=== PATIENT | male | born 2000 | race African-American/Black ===

== ENCOUNTER 2018-12-09 14:18 | Emergency (ER) | payer SELFPAY ==
[2018-12-09] MEDS ORDERED: SMZ./TMP. 800/160 MG TABLET ONE (15:38)
[2018-12-09] MEDS ORDERED: IBUPROFEN 400 MG TAB ONE (15:39)
[2018-12-09] MEDS ORDERED: predniSONE 20 MG TAB ONE (15:39)
[2018-12-09] MEDS ORDERED: IBUPROFEN 200 MG TAB PO ONE (15:39)
--- NOTE | 2018-12-09 15:41 | EDPHYS ---
Physician Documentation [facility] Name: Adi Soliman Age: 18 yrs Sex: Male : 2000 Arrival Date: 12/09/2018 Time: 14:22 Bed 28 Private MD: ED Physician Vaughn Mercedes HPI: 12/09 15:34 This 18 yrs old Black Male presents to ER via Ambulatory with complaints of Numbness Of kamilla Face, Headache. 15:34 The patient's problem is reported as headache. Onset: The symptoms/episode kamilla began/occurred 2 day(s) ago. Duration: The episode is continuous. Context: occurred at an unknown location. Associated signs and symptoms: The patient has no apparent associated signs or symptoms. Severity of symptoms: At their worst the symptoms were mild in the emergency department the symptoms are unchanged. Patient's baseline: Neuro: alert and fully oriented. Historical: - Allergies: 14:35 No Known Allergies; ss - Home Meds: 14:35 Singulair Oral [Active]; ss - PMHx: 14:35 None; ss - PSHx: 14:35 None; ss - Immunization history:: Adult Immunizations up to date. - Social history:: Smoking status: Patient/guardian denies using tobacco. - Ebola Screening: : No symptoms or risks identified at this time. - Family history:: not pertinent. ROS: 15:34 Constitutional: Negative for fever, chills, and weight loss, Eyes: Negative for injury, kamilla pain, redness, and discharge, ENT: Negative for injury, pain, and discharge, Neck: Negative for injury, pain, and swelling, Cardiovascular: Negative for chest pain, palpitations, and edema, Respiratory: Negative for shortness of breath, cough, wheezing, and pleuritic chest pain, Abdomen/GI: Negative for abdominal pain, nausea, vomiting, diarrhea, and constipation, Back: Negative for injury and pain, : Negative for injury, bleeding, discharge, and swelling, MS/Extremity: Negative for injury and deformity, Skin: Negative for injury, rash, and discoloration, Psych: Negative for depression, anxiety, suicide ideation, homicidal ideation, and hallucinations, Allergy/Immunology: Negative for hives, rash, and allergies, Endocrine: Negative for neck swelling, polydipsia, polyuria, polyphagia, and marked weight changes, Hematologic/Lymphatic: Negative for swollen nodes, abnormal bleeding, and unusual bruising. 15:34 Neuro: Positive for headache. Exam: 15:36 Radiologist reports: see report kamilla 15:36 Constitutional: This is a well developed, well nourished patient who is awake, alert, and in no acute distress. Head/Face: Normocephalic, atraumatic. Eyes: Pupils equal round and reactive to light, extra-ocular motions intact. Lids and lashes normal. Conjunctiva and sclera are non-icteric and not injected. Cornea within normal limits. Periorbital areas with no swelling, redness, or edema. ENT: Nares patent. No nasal discharge, no septal abnormalities noted. Tympanic membranes are normal and external auditory canals are clear. Oropharynx with no redness, swelling, or masses, exudates, or evidence of obstruction, uvula midline. Mucous membranes moist. Neck: Trachea midline, no thyromegaly or masses palpated, and no cervical lymphadenopathy. Supple, full range of motion without nuchal rigidity, or vertebral point tenderness. No Meningismus. Chest/axilla: Normal chest wall appearance and motion. Nontender with no deformity. No lesions are appreciated. Cardiovascular: Regular rate and rhythm with a normal S1 and S2. No gallops, murmurs, or rubs. Normal PMI, no JVD. No pulse deficits. Respiratory: Lungs have equal breath sounds bilaterally, clear to auscultation and percussion. No rales, rhonchi or wheezes noted. No increased work of breathing, no retractions or nasal flaring. Abdomen/GI: Soft, non-tender, with normal bowel sounds. No distension or tympany. No guarding or rebound. No evidence of tenderness throughout. Back: No spinal tenderness. No costovertebral tenderness. Full range of motion. Male : Normal genitalia with no discharge or lesions. Skin: Warm, dry with normal turgor. Normal color with no rashes, no lesions, and no evidence of cellulitis. MS/ Extremity: Pulses equal, no cyanosis. Neurovascular intact. Full, normal range of motion. Neuro: Awake and alert, GCS 15, oriented to person, place, time, and situation. Cranial nerves II-XII grossly intact. Motor strength 5/5 in all extremities. Sensory grossly intact. Cerebellar exam normal. Normal gait. Psych: Awake, alert, with orientation to person, place and time. Behavior, mood, and affect are within normal limits. Vital Signs: 14:40 BP 126 / 69; Pulse 74; Resp 18; Pulse Ox 99% on R/A; tr5 16:00 BP 118 / 66; Pulse 73; Resp 16; Temp 97.6(TE); Pulse Ox 98% on R/A; Weight 87.09 kg; tr5 Height 5 ft. 2 in. (157.48 cm); Pain 7/10; 16:00 Body Mass Index 35.12 (87.09 kg, 157.48 cm) tr5 MDM: 14:49 Patient medically screened. [facility] 15:37 Data reviewed: vital signs, nurses notes, radiologic studies, CT scan. [facility] 12/09 15:34 Order name: CT Head Brain wo Cont; Complete Time: 16:24 [facility] Administered Medications: 15:42 Drug: Motrin 600 mg Route: PO; tr5 16:05 Follow up: Response: No adverse reaction tr5 15:43 Drug: predniSONE 40 mg Route: PO; tr5 16:05 Follow up: Response: No adverse reaction tr5 15:44 Drug: Bactrim (160 mg-800 mg (DS) 1 tablet Route: PO; tr5 16:05 Follow up: Response: No adverse reaction tr5 Disposition: 12/09/18 15:40 Discharged to Home. Impression: Headache, Acute sinusitis, Cutaneous abscess of groin. - Condition is Stable. - Discharge Instructions: Skin Abscess, General Headache Without Cause, Sinusitis, Adult, Skin Abscess, [id number], General Headache Without Cause, [id number]. - Prescriptions for Ibuprofen 600 mg Oral Tablet - take 1 tablet by ORAL route every 8 hours As needed take with food; 21 tablet. Medrol (George) 4 mg Oral Tablets, Dose Pack - take 1 tablet by ORAL route as directed - follow package instructions; 1 packet. - Medication Reconciliation Form, Thank You Letter, Antibiotic Education, Prescription Opioid Use form. - Follow up: Private Physician; When: 2 - 3 days; Reason: Recheck today's complaints, Continuance of care, Re-evaluation by your physician. Follow up: Javier Smiley; When: 2 - 3 days; Reason: Recheck today's complaints, Continuance of care, Re-evaluation by your physician. - Problem is new. - Symptoms have improved. Signatures: Dispatcher [employer] Vaughn Méndez MD MD cha Smirch, Shelby, RN RN Jefferson Yoon RN RN tr5 Corrections: (The following items were deleted from the chart) 17:01 15:40 12/09/2018 15:40 Discharged to Home. Impression: Headache; Acute sinusitis. [facility] Condition is Stable. Discharge Instructions: General Headache Without Cause, Sinusitis, Adult, General Headache Without Cause, [id number]. Prescriptions for Ibuprofen 600 mg Oral Tablet - take 1 tablet by ORAL route every 8 hours As needed take with food; 21 tablet, Medrol (George) 4 mg Oral Tablets, Dose Pack - take 1 tablet by ORAL route as directed - follow package instructions; 1 packet. and Forms are Medication Reconciliation Form, Thank You Letter, Antibiotic Education, Prescription Opioid Use. Follow up: Private Physician; When: 2 - 3 days; Reason: Recheck today's complaints, Continuance of care, Re-evaluation by your physician. Follow up: Javier Smiley; When: 2 - 3 days; Reason: Recheck today's complaints, Continuance of care, Re-evaluation by your physician. Problem is new. Symptoms have improved. [facility] 17:07 17:01 12/09/2018 15:40 Discharged to Home. Impression: Headache; Acute sinusitis; tr5 Cutaneous abscess of groin. Condition is Stable. Discharge Instructions: General Headache Without Cause, Sinusitis, Adult, General Headache Without Cause, [id number]. Prescriptions for Ibuprofen 600 mg Oral Tablet - take 1 tablet by ORAL route every 8 hours As needed take with food; 21 tablet, Medrol (George) 4 mg Oral Tablets, Dose Pack - take 1 tablet by ORAL route as directed - follow package instructions; 1 packet. and Forms are Medication Reconciliation Form, Thank You Letter, Antibiotic Education, Prescription Opioid Use. Follow up: Private Physician; When: 2 - 3 days; Reason: Recheck today's complaints, Continuance of care, Re-evaluation by your physician. Follow up: Javier Smiley; When: 2 - 3 days; Reason: Recheck today's complaints, Continuance of care, Re-evaluation by your physician. Problem is new. Symptoms have improved. [facility]
--- NOTE | 2018-12-09 15:41 | ER ---
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 It's been going on for months." Mother states, "He has cellulitis of his inner thighs, and he says it hasn't gone away." patient reports he was given antibiotics for cellulitis in October, but it did not help.". 14:35 Method Of Arrival: Ambulatory ss 14:35 Transition of care: patient was not received from another setting of care. Onset of ss symptoms is unknown. Risk Assessment: Do you want to hurt yourself or someone else? Patient reports no desire to harm self or others. Initial Sepsis Screen: Does the patient meet any 2 criteria? No. Patient's initial sepsis screen is negative. Does the patient have a suspected source of infection? No. Patient's initial sepsis screen is negative. Care prior to arrival: None. 14:35 Acuity: SABI 5 ss Historical: - Allergies: 14:35 No Known Allergies; ss - Home Meds: 14:35 Singulair Oral [Active]; ss - PMHx: 14:35 None; ss - PSHx: 14:35 None; ss - Immunization history:: Adult Immunizations up to date. - Social history:: Smoking status: Patient/guardian denies using tobacco. - Ebola Screening: : No symptoms or risks identified at this time. - Family history:: not pertinent. Screenin:00 Abuse screen: Denies threats or abuse. Nutritional screening: No deficits noted. tr5 Tuberculosis screening: No symptoms or risk factors identified. Fall Risk None identified. Assessment: 14:40 General: Appears in no apparent distress. Behavior is calm, cooperative, appropriate tr5 for age. Pain: Complains of pain in forehead, right eye, right cheek, right ear and right mu-ism Pain does not radiate. Quality of pain is described as aching, crampy, Pain began Pt says the headaches began 3 months ago. 16:51 Reassessment: Awaiting for Dr. Mercedes to assess patient's groin area prior to ss discharge home. Vital Signs: 14:40 BP 126 / 69; Pulse 74; Resp 18; Pulse Ox 99% on R/A; tr5 16:00 BP 118 / 66; Pulse 73; Resp 16; Temp 97.6(TE); Pulse Ox 98% on R/A; Weight 87.09 kg; tr5 Height 5 ft. 2 in. (157.48 cm); Pain 7/10; 16:00 Body Mass Index 35.12 (87.09 kg, 157.48 cm) tr5 ED Course: 14:22 Patient arrived in ED. mr 14:34 Arm band placed on. ss 14:39 Jefferson Coughlin, RN is Primary Nurse. tr5 14:45 Bed in low position. Call light in reach. Side rails up X 1. tr5 14:49 Vaughn Mercedes MD is Attending Physician. kamilla 14:51 Triage completed. ss 15:40 Javier Smiley MD is Referral Physician. kamilla 15:46 CT completed. Patient tolerated procedure well. Patient moved back from CT. mw3 15:46 CT Head Brain wo Cont In Process Unspecified. EDMS 16:18 Awaiting radiology results. tr5 17:04 No provider procedures requiring assistance completed. Patient did not have IV access tr5 during this emergency room visit. Administered Medications: 15:42 Drug: Motrin 600 mg Route: PO; tr5 16:05 Follow up: Response: No adverse reaction tr5 15:43 Drug: predniSONE 40 mg Route: PO; tr5 16:05 Follow up: Response: No adverse reaction tr5 15:44 Drug: Bactrim (160 mg-800 mg (DS) 1 tablet Route: PO; tr5 16:05 Follow up: Response: No adverse reaction tr5 Outcome: 15:40 Discharge ordered by . kamilla 17:04 Discharged to home ambulatory, with family. tr5 17:04 Condition: stable 17:04 Discharge instructions given to patient, Instructed on discharge instructions, follow up and referral plans. medication usage, Demonstrated understanding of instructions, follow-up care, medications, Prescriptions given X 2. 17:07 Patient left the ED. 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 2 in.; BMI: 35.1; Pain 7/10; ss 16:02 16:00 BP 109 / 63; Pulse 76bpm; Resp 16bpm; Pulse Ox 98% RA; Temp 97.6F Temporal; 87.09 tr5 kg; Height 5 ft. 2 in.; BMI: 35.1; Pain 7/10; tr5
--- NOTE | 2018-12-09 16:15 | RAD REPORT ---
EXAM DESCRIPTION: CT - Head Brain Wo Cont - 12/09/2018 3:46 pm CLINICAL HISTORY: Headache COMPARISON: None. TECHNIQUE: Computed axial tomography of the head was obtained. IV contrast was not requested. All CT scans are performed using dose optimization technique as appropriate and may include automated exposure control or mA/KV adjustment according to patient size. FINDINGS: An intracranial bleed is not seen . The ventricles are normal in caliber. No extra-axial fluid collection is noted. Fluid within the sinuses/ mastoids is not seen. IMPRESSION: No acute intracranial abnormality is seen. If patient's symptoms persist MRI of the bra in would be recommended.
[2018-12-09 17:18] VITALS: BP 118/66; TEMP 97.6; O2SAT 98
== END 2018-12-09 17:07 | disposition home or self-care (01) ==
LOC: ER 14:18
DX: J01.90 Acute sinusitis, unspecified (principal); L02.214 Cutaneous abscess of groin
CPT/HCPCS: 70450; 99284; J7512

== ENCOUNTER 2020-03-04 14:15 | Emergency (ER) | payer BC ==
--- OUTSIDE RECORDS SUMMARY | 2020-03-04 14:26 | XMS REPORT | Continuity of Care Document ---
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 [facility] (disorder) Mastoiditis Resolved Problem 10/16/2018 [facility] (disorder) [facility] 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 [facility] (disorder) Seasonal Resolved Problem 10/16/2018 [facility] allergic [facility] rhinitis (disorder) Medications Medication Details Route Status Patient Ordering Order Source Instructions Provider Date ibuprofen 600 mg 600 mg = Active Sheela y oral tablet 1 tab, 019 Hospital PO, Q6H, PRN Pain or Fever, Take with food, X 5 day, # 20 tab, 0 Refill(s) Famotidine 20 MG 20 mg = 1 Active Ka ty Oral Tablet tab, PO, 019 Hospital BID, # 28 tab, 0 Refill(s) Maalox Advanced Notes: Inactive Thelma Regular Strength (aluminum 019 Hospi junie SUSP hydroxide -magnesiu m hyd-simet hicone 200-200-2 0mg/5ml 30 ml ud REED) Lidocaine Viscous Notes: Inactive Ka ty 2% mucous membrane (Same as: 019 Hos pital solution Xylocaine ) Saline Flush 0.9% Notes: Inactive Ka ty (Same as: 019 Hospital BD Posiflush ) Sodium Chloride 1,000 mL, Inactive Ka ty 0.9% (Bolus) IV 1000 019 Hospital ml/hr, Infuse Over: 1 hr, Route: IV, 1,000, Drug form: INJ, ONCE, Priority: STAT, Dosing Weight 90.909 kg, Start date: 10/14/18 15:57:00 CDT, Stop date: 10/14/18 15:57:00 CDT, 0 Motrin Notes: Inactive Thelma (Same as: [address] [place] [address] Motrin) "Do Not Crush" Take with food. aspirin 81 mg Notes: Do No Longer Sheela y tablet, enteric not crush Active [facility] Hospit al coated or chew. (Same As: Ecotrin) Prednisone Notes: No Longer Thelma Take with Active [address] [place] [address] food. atorvastatin Notes: Inactive Thelma (Same As: [address] [place] [address] Lipitor) Ibuprofen 800 mg, Active Thelma BID, PRN [address] [place] [address] Pain Score 1-5, 0 Refill(s) valACYclovir 500 1,000 mg Active Sheela y mg oral tablet = 2 tab, [address] [place] [address] PO, ABXQ8H, X 7 day, # 42 tab, 0 Refill(s) predniSONE 20 mg See Active Thelma oral tablet Special [address] [place] [address] Instructi ons, PO, Daily, 12 day regimen: Days 1-4 - 40 mg (2 tabs) daily Days 5-8 - 20 mg (1 tab) daily Days 9-12 - 10 mg (1/2 tab) daily, X 12 day, # 12 tab, 0 Refill(s) valacyclovir Notes: Inactive Thelma (Same As: [address] [place] [address] Valtrex) tramadol 50 mg = 1 Active Thelma hydrochloride 50 tab, PO, 018 Hospit al MG Oral Tablet Q4H, PRN Pain, X 10 day, # 60 tab, 0 Refill(s) Sodium Chloride 1,000 mL, Inactive Ka ty 0.9% IV 1,000 mL Rate: 125 018 Hospi junie ml/hr, Infuse over: 8 hr, Route: IV, Dosing Weight 85.455 kg, Total Volume: 1,000, Start date: 03/15/17 12:05:00 STAGE RIGGER, Duration: 30 day, Stop date: 04/14/17 12:04:00 STAGE RIGGER, 2.08, m2 Polymyxin B 08707 1 drp, Active Sheela y UNT/ML / BOTH [address] [place] [address] Trimethoprim 1 EYES, MG/ML Ophthalmic TID, 0 Solution Refill(s) Fluticasone 1 spray, Active Thelma propionate 0.05 NASAL, [address] [place] [address] MG/ACTUAT Metered Daily, Dose Nasal [place] PRN [Flonase] Allergies , 0 Refill(s) ibuprofen 800 mg 800 mg = Inactive Handy ty oral tablet 1 tab, [facility] Hospital PO, TID, PRN Pain Score 1-5, 0 Refill(s) montelukast 10 MG 10 mg = 1 Active K aty Oral Tablet tab, PO, [address] [place] [address] [Singulair] Daily, 0 Refill(s) lisdexamfetamine 20 mg = 1 Active Ka ty dimesylate 20 MG cap, PO, 018 Hospit al Oral Capsule QAM, 0 [Vyvanse] Refill(s) Saline Flush 0.9% Notes: Inactive Handy ty (Same as: [address] [place] [address] Posiflush ) Enoxaparin Notes: Inactive Thelma (Same as: [address] [place] [address] Lovenox) Famotidine Notes: Inactive Thelma (Same as: [address] [place] [address] Pepcid) Saline Flush 0.9% Notes: Inactive Handy jose a (Same as: [address] [place] [address] Posiflush ) Sodium Chloride 1,000 mL, Inactive Handy ty 0.9% IV 1,000 mL Rate: 75 018 Hospit al ml/hr, Infuse over: 13.3 hr, Route: IV, Dosing Weight 85.455 kg, Total Volume: 1,000, Start date: 03/15/17 8:25:00 STAGE RIGGER, Duration: 30 day, Stop date: 04/14/17 8:24:00 STAGE RIGGER, 2.08, m2 Acetaminophen Notes: Do Inactive Thelma not [address] [place] [address] exceed 4 gm/day. (Same as: Tylenol) Aspirin 325 mg, Inactive Thelma Route: [address] [place] [address] PO, Drug form: ECTAB, ONCE, Dosing Weight 85.455, kg, Priority: STAT, Start date: 03/15/17 4:54:00 STAGE RIGGER, Stop date: 03/15/17 4:54:00 STAGE RIGGER BD Normal Saline Notes: Inactive Sheela y Flush (Same as: 018 [facility] BD Posiflush ) Saline Flush 0.9% Notes: Inactive Handy naranjo (Same as: 018 [facility] BD Posiflush ) Sodium Chloride 1,000 mL, Inactive Handy ty 0.9% (Bolus) IV Infuse [address] [place] [address] Over: 1 hr, Route: IV, ONCE, Priority: STAT, Dosing Weight 85.455 kg, Start date: 03/15/17 2:05:00 STAGE RIGGER, Stop date: 03/15/17 2:05:00 STAGE RIGGER Allergies, Adverse Reactions, Alerts Substance Category Reaction Severity Reaction Status Date Comments S ource type Reported No Known Assertion Drug Handy naranjo Medication allergy Hospi junie Allergies Immunizations No Data Provided for This Section Results Order Name Results Value Reference Date Interpretation Comments Flory rce Range CARDIAC Troponin-I <0.02 0.00 - 10/14 [facility] ENZYMES 0.40 [facility] CHEM PANEL B/C Ratio 9 6 - 25 10/14 [facility] CHEM PANEL AGAP 12.0 10.0 - 08 [facility] 20.0 [facility] CHEM PANEL A/G Ratio 1.2 0.7 - 1.6 10/14 [facility] CHEM PANEL Globulin 3.6 2.7 - 4.2 10/14 [facility] CHEM PANEL eGFR 108 10/14 Result Comment: The Hospital eGFR is calculated using the CKD-EPI formula. In most young, healthy individuals the eGFR will be >90 mL/min/1.73m2 . The eGFR declines with age. An eGFR of 60-89 may be normal in some populations, particularly the elderly, for whom the CKD-EPI formula has not been extensively validated. Use of the eGFR is not recommended in the following populations:< br/>
Shannan viduals with unstable creatinine concentration s, including patients and those with serious co-morbid conditions.<b r/>
Patie nts with extremes in muscle mass or diet.

The data above are obtained from the National Kidney Disease Education Program (NKDEP) which additionally recommends that when the eGFR is used in patients with extremes of body mass index for purposes of drug dosing, the eGFR should be multiplied by the estimated BMI. CHEM PANEL Alk Phos 88 39 - 136 08 [facility] CHEM PANEL AST 17 0 - 37 10/14 [facility] CHEM PANEL Bili Total 1.1 0.2 - 1.3 10/14 [facility] CHEM PANEL Total 8.0 6.4 - 8.4 10/14 Hospital CHEM PANEL ALT 21 0 - 65 10/14 [facility] CHEM PANEL Albumin Lvl 4.4 3.5 - 5.0 10/14 Thelma [facility] CHEM PANEL Calcium Lvl 9.5 8.5 - 10.5 10/14 [facility] CHEM PANEL CO2 27 24 - 32 10/14 [facility] CHEM PANEL Chloride Lvl 105 95 - 109 10/14 [facility] CHEM PANEL Sodium Lvl 140 135 - 145 10/14 [facility] CHEM PANEL Potassium 4.0 3.5 - 5.1 10/14 [facility] L[facility] Hospital CHEM PANEL BUN 9 7 - 22 10/14 [facility] CHEM PANEL Creatinine 1.00 0.50 - 10/14 Thelma Lvl 1.40 /2018 Hospital CHEM PANEL Glucose Lvl 85 70 - 99 10/14 Thelma [facility] HEMATOLOGY Hct 42.6 42.0 - 10/14 [facility] 54.0 Hospital HEMATOLOGY MCV 86.9 80.0 - 10/14 [facility] 94.0 Hospital HEMATOLOGY MCH 28.8 27.0 - 08 [facility] 31.0 Hospital HEMATOLOGY Platelet 208 133 - 450 10/14 Thelma [facility] HEMATOLOGY MPV 9.4 7.4 - 10.4 10/14 Thelma [facility] HEMATOLOGY RDW 12.4 11.5 - 10/14 Thelma 14.5 [facility] HEMATOLOGY MCHC 33.1 32.0 - 08 [facility] 36.0 Hospital HEMATOLOGY WBC 6.6 3.7 - 10.4 10/14 Thelma [facility] HEMATOLOGY RBC 4.90 4.70 - 10/14 Thelma 6.10 Hospital HEMATOLOGY Hgb 14.1 14.0 - 10/14 [facility] 18.0 Hospital HEMATOLOGY Lymphocytes 1.8 1.0 - 5.5 10/14 Thelma # /2019 Hospital HEMATOLOGY Monocytes # 0.7 0.0 - 0.8 10/14 Thelma /2018 Hospital HEMATOLOGY Eosinophils 0.7 0.0 - 4.0 08 Thelma /2018 Hospital HEMATOLOGY Basophils 0.6 0.0 - 1.0 08 Thelma /2018 Hospital HEMATOLOGY Neutrophils 4.0 1.5 - 8.1 10/14 Thelma # /2018 Hospital HEMATOLOGY Segs 60.5 45.0 - 08 [facility] 75.0 Hospital HEMATOLOGY Lymphocytes 27.6 20.0 - 08 [facility] 40.0 Hospital HEMATOLOGY Monocytes 10.6 2.0 - 12.0 10/14 Thelma /2018 Hospital CARDIAC Troponin-I 0.03 0.00 - 03/15 Thelma ENZYMES 0.40 Hospital LIPIDS VLDL 14 03/15 Thelma /2017 Hospital LIPIDS LDL 78 <=99 mg/dL 03/15 Thelma (Calculated) Hospital LIPIDS Trig 72 <=149 03/15 [facility]lma mg/dL Hospital LIPIDS HDL 38 >=61 mg/dL 03/15 [facility] Hospital LIPIDS Chol 130 <=199 03/15 [facility] mg/dL Hospital LIPIDS CHD Risk 3.42 4.00 - 03/15 [facility]lma 7.30 Hospital SPECIAL MADIHA 42 8 - 52 03/15 [facility] CHEMISTRY Hospital SPECIAL Hgb A1C 4.6 <=5.6 % 03/15 [facility] CHEMISTRY Hospital DRUG SCREEN U Cannab Scr Negative Negative 03/15 Ka ty *NA* /2017 Hospital (03/15/17 3:19 AM) DRUG SCREEN U Phencyc Negative Negative 03/15 Thelma Scr *NA* Hospital (03/15/17 3:19 AM) DRUG SCREEN U Opiate Scr Negative Negative 03/15 Ka ty *NA* Hospital (03/15/17 3:19 AM) DRUG SCREEN UDS Note See Note 03/15 Tehlma (03/15/17 3:19 AM) /2017 Hospita l DRUG SCREEN U Cocaine Negative Negative 03/15 Thelma Scr *NA* Hospital (03/15/17 3:19 AM) DRUG SCREEN U Benzodia Negative Negative 03/15 MH Thelma Scr *NA* Hospital (03/15/17 3:19 AM) DRUG SCREEN U Amph Scr Negative Negative 03/15 Thelma *NA* [facility] (03/15/17 3:19 AM) DRUG SCREEN U Rona Scr Negative Negative 03/15 [facility]lma *NA* Hospital (03/15/17 3:19 AM) URINE AND UA Nitrite Negative Negative 03/15 Thelma STOOL (03/15/17 3:19 AM) Hospita l URINE AND UA 0.2 0.1 - 1.0 03/15 Thelma STOOL Urobilinogen /2017 [facility] URINE AND UA Bili Negative Negative 03/15 Thelma STOOL *NA* [facility] (03/15/17 3:19 AM) URINE AND UA pH 6.5 5.0 - 8.0 03/15 Thelma STOOL [facility] URINE AND UA Protein Negative Negative 03/15 Thelma STOOL mg/dL mg/dL /2017 Hospital URINE AND UA Spec Grav 1.020 <=1.030 03/15 Thelma STOOL [facility] URINE AND UA Color Yellow Yellow 03/15 Thelma STOOL *NA* [facility] (03/15/17 3:19 AM) URINE AND UA Glucose Negative Negative 03/15 Thelma STOOL mg/dL mg/dL [facility] URINE AND UA Ketones Negative Negative 03/15 Thelma STOOL mg/dL mg/dL [facility] URINE AND UA Leuk Est Negative Negative 03/15 [facility]lma STOOL (03/15/17 3:19 AM) Hospita l URINE AND UA Turbidity Clear Clear 03/15 Thelma STOOL (03/15/17 3:19 AM) Hospita l URINE AND UA Blood Negative Negative 03/15 Thelma STOOL (03/15/17 3:19 AM) Hospita l URINE AND UA RBC 0-2 /HPF 0 - 2 03/15 Thelma STOOL [facility] URINE AND UA Bacteria Occasional None Seen 03/15 Ka ty STOOL /HPF /HPF /2017 Hospital URINE AND UA WBC 0-2 /HPF None Seen 03/15 Thelma STOOL /HPF /2017 Hospital URINE AND UA Sq Epi None Seen Few 03/15 Thelma STOOL (03/15/17 3:19 AM) Hospita l CARDIAC CK MB Index 0.3 0.0 - 2.5 03/15 Thelma ENZYMES /2017 Hospital CARDIAC Troponin-I 0.04 0.00 - 03/15 Thelma ENZYMES 0.40 /2017 Hospital CARDIAC Total CK 968 12 - 191 03/15 Thelma ENZYMES /2017 Hospital CARDIAC CK MB 3.0 0.5 - 3.6 03/15 Thelma ENZYMES /2017 Hospital ELECTROLYTE Sodium Lvl 142 135 - 145 03/15 Thelma S Hospital ELECTROLYTE Potassium 3.7 3.5 - 5.1 03/15 [facility]lma S Lvl Hospital ELECTROLYTE Chloride Lvl 105 95 - 109 03/15 Sheela y S [facility] ELECTROLYTE CO2 27 24 - 32 03/15 Thelma S [facility] ELECTROLYTE Calcium Lvl 8.9 8.5 - 10.5 03/15 Ka ty S Hospital ELECTROLYTE AGAP 13.7 10.0 - 03/15 Thelma S 20.0 [facility] ELECTROLYTE eGFR 116 03/15 Result Thelma S Comment: The Hospital eGFR is calculated using the CKD-EPI formula. In most young, healthy individuals the eGFR will be >90 mL/min/1.73m2 . The eGFR declines with age. An eGFR of 60-89 may be normal in some populations, particularly the elderly, for whom the CKD-EPI formula has not been extensively validated. Use of the eGFR is not recommended in the following populations:< br/>
Shannan viduals with unstable creatinine concentration s, including patients and those with serious co-morbid conditions.<b r/>
Patie nts with extremes in muscle mass or diet.

The data above are obtained from the National Kidney Disease Education Program (NKDEP) which additionally recommends that when the eGFR is used in patients with extremes of body mass index for purposes of drug dosing, the eGFR should be multiplied by the estimated BMI. ELECTROLYTE Glucose Lvl 96 70 - 99 03/15 Thelma S [facility] ELECTROLYTE BUN 15 7 - 22 03/15 Thelma S Hospital ELECTROLYTE Creatinine 1.07 0.50 - 03/15 Thelma S Lvl 1.40 /2017 Hospital HEMATOLOGY Basophils # 0.1 0.0 - 0.2 01/ [facility] HEMATOLOGY Monocytes # 1.1 0.0 - 0.8 01/ [facility] HEMATOLOGY Basophils 0.4 0.0 - 1.0 01/ [facility] HEMATOLOGY Eosinophils 0.4 0.0 - 4.0 01/ [facility] HEMATOLOGY Lymphocytes 2.3 1.0 - 5.5 03/15 Thelma # /2017 Hospital HEMATOLOGY Segs-Bands # 8.9 1.5 - 8.1 03/15 Sheela y /2017 Hospital HEMATOLOGY Segs 72.0 45.0 - 03/15 Thelma 75.0 /2017 Hospital HEMATOLOGY Monocytes 8.8 2.0 - 12.0 03/15 [facility] HEMATOLOGY Lymphocytes 18.4 20.0 - 03/15 [facility] 40.0 Hospital HEMATOLOGY MPV 8.8 7.4 - 10.4 03/15 [facility] HEMATOLOGY Platelet 242 133 - 450 03/15 [facility] HEMATOLOGY MCV 85.4 80.0 - 03/15 [facility] 94.0 Hospital HEMATOLOGY Hct 39.7 42.0 - 03/15 [facility]lma 54.0 Hospital HEMATOLOGY Hgb 13.4 14.0 - 03/15 [facility] 18.0 Hospital HEMATOLOGY MCH 28.9 27.0 - 03/15 [facility] 31.0 Hospital HEMATOLOGY RDW 12.4 11.5 - 03/15 [facility]lma 14.5 Hospital HEMATOLOGY MCHC 33.8 32.0 - 03/15 Thelma 36.0 /2017 Hospital HEMATOLOGY WBC 12.4 3.7 - 10.4 03/15 [facility] HEMATOLOGY RBC 4.65 4.70 - 03/15 [facility]lma 6.10 Hospital HEMATOLOGY INR 1.27 0.85 - 03/15 [facility]ma 1.17 Hospital HEMATOLOGY PT 16.0 12.0 - 03/15 [facility] 14.7 Hospital HEMATOLOGY PTT 32.8 22.9 - 03/15 [facility] 35.8 Hospital Pathology Reports No Data Provided for This Section Diagnostic Reports Report Value Date Source Chest 2 views DX PROCEDURE: Chest Radiograph. 10/14/2018 [facility] Clinical Indication: Chest pain. Comparison: Chest radiograph 03/15/2017. FINDINGS: The chest shows normal lung volumes without interstitial or airspace opacities, pleural effusions or pneumothorax. The heart size and pulmonary vasculature are normal. The trachea is midline. There are no clinically significant osseous abnormalities noted. IMPRESSION: 1. No chest radiographic evidence of acute cardi opulmonary disease. SL:[id number] Brain wo contrast MRI Patient Name: LEXY MAN 03/15/2017 [facility] : 2000; Age: 17 years y/o Male MR: [id number] Study: Brain wo contrast MRI 03/15/2017 8:25 AM CS T Clinical Indication: - tia/cva; Comparison: None TECHNIQUE: Multiplanar nonco ntrast MRI of the brain is performed on a 3 Nallely magnet. Contrast: None. FINDINGS: The brain parenchyma is unre markable. The montesinos-white interfaces are well- maintained. There is no evidence of acute intracranial hemorrhage, acute or subacute infarct, mass, focal edema, midline shift or extra-axial fluid collectio n. The ventricles and basilar cisterns are unremarkable. The craniocervical junction and midline structures are unremarkable. No sellar or suprasellar abnormalities are seen. The central intracranial flow voids are maintained. The visualized orbits, paranasal sinuses and mas toids are unremarkable. IMPRESSION: 1. Unremarkable noncontrast MRI of the brain without evidence of acute intracranial process. Neck wo contrast MRA Clinical Indication: - tia/cva; 03/15/2017 [facility] Comparison: None Technique: Magnetic resonanc e angiography of the neck was performed without gadolinium contrast with time of flight technique. 3-D maximum intensity projection images were obtained. FINDINGS: The origins of the right brachiocephalic artery, right common carotid artery, right subclavian artery, right vertebral artery, left common carotid artery, left subclavian artery and left vertebral artery are widely patent. Bilateral common carotid arteries are widely pat ent. Bilateral internal carotid a rteries and carotid bulb regions are patent without significant stenosis by NASCET criteria. Bilateral external carotid arteries are patent. Bilateral vertebral arteries are widely patent without stenosis. The visualized intracranial segments of the vertebral arteries are widely patent. The source images show no evidence of carotid or vertebral artery dissection. Any reported ICA stenoses di rectly reference the distal internal carotid diameter as the denominator for stenosis measurement. (NASCET criteria) IMPRESSION: Unremarkable MRA of the neck . No significant carotid arterial stenosis by NASCET criteria. No significant vertebral artery stenosis. SL: [id number] Brain wo contrast MRA Patient Name: LEXY MAN 03/15/2017 [facility] : 2000; Age: 17 years y/o Male MR: [id number] Study: Brain wo contrast MRA 03/15/2017 8:25 AM CS T Ordering Physician: Roseann Huber MD Clinical Indication: - tia/cva; Comparison: None Technique: Magnetic resonanc e angiography of the elem of Song was performed without contrast. 3D reconstructed images were created. FINDINGS: The intracranial internal ca rotid arteries are normal in caliber. The A1 and A2 segments of the bilateral anterior cerebral arteries are unremarkable. The M1 and M2 segments of bilateral middle cerebral arteries are unremarkable. The anterior communicating artery is unremarkable. Bilateral vertebral arteries , basilar artery, and posterior cerebral arteries are unremarkable. Posterior communicating arteries are unremarkable. Bilateral superior cerebellar arteries are unremarkabl e. Left anterior inferior ce rebellar artery is unremarkable. Right AICA is not visualized and is likely hypoplastic. Origins of the posterior-inferior cerebellar arteries are not included. The visualized left PICA is within normal limits. There is no aneurysm or significant atherosclero tic disease. IMPRESSION: No intracranial vascular stenosis or occlusion. No evidence of aneurysm Brain wo contrast CT Patient Name: LEXY MAN 03/15/2017 [facility] : 2000; Age: 17 years y/o Male MR: [id number] Study: BRAIN WO CONTRAST CT 03/15/2017 2:05 AM STAGE RIGGER Ordering Physician: Eriberto Barboza MD Clinical Indication: - Righ t-sided hand and facial weakness with right-sided facial numbness; Comparison: None TECHNIQUE: CT images were ob tained from the foramen magnum to the vertex without the use of intravenous contrast on a multidetector CT. Coronal and sagittal reconstructions were obtained. CT radiation dose DLP: 1142 mGy FINDINGS: BRAIN PARENCHYMA: There are normal montesinos-white corticomedullary interfaces, sulci and gyri. There are no focal mass lesions or fluid collections on this noncontrast head CT. There is no mass effect, midl ine shift or edema. There ar e no intra-axial or extra-axial fluid collections, intraventricular or intraparenchymal hemorrhage. The pineal, sellar, brainstem, cerebellum and skull base regions appear unremarkable. The white matter, basal gang marvin, and posterior cranial fossa including the brainstem are normal. VENTRICLES: CSF spaces are n ormal. The lateral ventricles, third and fourth ventricles appear unremarkable. The basilar cisterns are normal. ORBITS, MASTOIDS AND PARANAS AL SINUSES: The visualized orbits are unremarkable. The paranasal sinuses are unremarkable. The mastoid air cells are clear. SKULL: There are no osseous abnormalities. IMPRESSION: Unremarkable normal noncontr ast head CT with no trauma, mass, hemorrhage or subacute stroke. SL: CLARA Chest 1view DX Patient Name: LEXY MAN 03/15/2017 [facility] : 2000; Age: 17 years y/o Male MR: [id number] Study: CHEST 1VIEW DX 03/15/2017 2:05 AM STAGE RIGGER Ordering Physician: Eriberto Barboza MD Clinical Indication: - Righ t-sided hand and facial weakness with right-sided facial numbness; Comparison: None FINDINGS: The PA and lateral chest rad iographs demonstrate normal lung volumes to be clear throughout. No pleural effusions or pneumothorax. The heart size and pulmonary vasculature are normal. The mediastinum is unremarkable. The trachea is midline. There are no clinically significant osseous abno rmalities noted. IMPRESSION: No chest radiographic evidence of acute cardiopu lmonary disease. SL: CLARA Consultation Notes No Data Provided for This Section Discharge Summaries No Data Provided for This Section History and Physicals No Data Provided for This Section Vital Signs Vital Sign Value Date Comments Source Heart Rate 60 10/14/2018 [facility] Respitory Rate 18 10/14/2018 [facility] Systolic (mm Hg) 117 10/14/2018 [facility] pital Diastolic (mm Hg) 75 10/14/2018 [facility] spital Temperature Oral (F) 98.1 F 10/14/2018 [facility] BMI Calculated 28.76 10/14/2018 [facility] Weight 90.909 10/14/2018 [facility] Temperature Oral (F) 98 F 10/14/2018 [facility] Height 177.8 cm 10/14/2018 [facility] Respitory Rate 18 10/14/2018 [facility] Systolic (mm Hg) 123 10/14/2018 [facility] Diastolic (mm Hg) 69 10/14/2018 [facility] Heart Rate 59 10/14/2018 [facility] Temperature Oral (F) 98.1 F 03/15/2017 [facility] Respitory Rate 16 03/15/2017 [facility] Systolic (mm Hg) 124 03/15/2017 [facility] Diastolic (mm Hg) 64 03/15/2017 [facility] Respitory Rate 15 03/15/2017 [facility] Systolic (mm Hg) 127 03/15/2017 [facility] Diastolic (mm Hg) 50 03/15/2017 [facility] Systolic (mm Hg) 107 03/15/2017 [facility] Diastolic (mm Hg) 59 03/15/2017 [facility] Respitory Rate 14 03/15/2017 [facility] Heart Rate 70 03/15/2017 [facility] Temperature Oral (F) 97.5 F 03/15/2017 [facility] Temperature Oral (F) 98.4 F 03/15/2017 [facility] Heart Rate 78 03/15/2017 [facility] Heart Rate 92 03/15/2017 [facility] BMI Calculated 26.28 03/15/[facility] Weight 85.455 03/15/2017 [facility] Height 180.34 cm 03/15/2017 [facility] Encounters Location Location Encounter Encounter Reason Attending ADM DC Stat us Source Details Type Number For Provider Date Date Visit [facility] [id number] [place] [facility] [id number] Kye 10/14 10/14 [facility] /2018 [facility] Procedures Procedure Code Date Perfomer Comments Source Ear [id number] [facility] Center operations<sup>1 when he was about H ospital </sup> 1 Assessment and Plan Assessment and Plan Date Source Extracted from:Title: Neurology Consult Note 03/16/2017 [facility] Author: Elsa Hutchison Date: 03/15/17 Facial droop, right Right hand weakness 17yo w/ Newton's Palsy on Right face 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 MRI bra in negative for acute infarct/abnormality. MRA head/neck negative for signif vessel disease EKG on admit NSR w/ HR 67 Labs reviewed. Mild leukocytosis 12.4 an d CK of 968 (likely elevated due to recent workout at gym prior to going to ED). otherwise no signif abnormalities No need to cont ASA/statin therapy Recommend Valacyclovir 1g PO TID and Pre dnisone taper (60x 5 days then decrease by 10 daily) x 10 days Will also check for Lyme and MADIHA for pos sible sarcoidosis as pt's mother has had Newton's twice. Follow up in Clinic in 4-6 weeks OK for discharge from neuro standpoint. No further workup ne eded at this time Discussedwith Dr. Jaida Duffy, neurology attending physician. NEUROLOGY ATTENDING: The patient was evaluated with KYLE Varma. I performed my own neurological examination and reviewed all pertinent imaging and laboratory studies. 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 We discussed his diagnosis and prognosis of Newton's palsy at length. Patient reports that his mother has had two episode s of Newton's palsy but this is his first episode. Will check Lyme and MADIHA to rule out secondary causes of facial nerve weakness. Vascular studies negative for any aneurysm and MRI brain negative for any tumor/demyelinating/ischemiclesions . Recommend treatment with Prednisone and valacylovir. He can follow-up in my clinic in a few weeks to review his results and for further management of his chronic right hand symptoms. Vaibhav Duffy MD Neurology MSO [id number] Plan of Care No Data Provided for This Section Social History Social History Date Source Social History TypeResponse 10/14/2018 [facility] Smoking Status Never smoker; Exposure to Tobacco Smoke None; Cigarette Smoking Last 365 Days No; Reg Smoking Cessation Counseling No entered on: 10/14/18 Family History No Data Provided for This Section Advance Directives No Data Provided for This Section Functional Status No Data Provided for This Section
--- OUTSIDE RECORDS SUMMARY | 2020-03-04 14:27 | XMS REPORT | Continuity of Care Document ---
:2000 Author Organization [facility] t Address [address] [place] [address] Care Team Providers Name Role Phone Temo Freitas Attending Clinician Ishfamaribel Attending Clinician Ishjorge Admitting Clinician Problems Condition Condition Condition Status Onset Resolution Last Treating Co mments Source Name Details Category Date Date Treatment Clinician Date CHEST PAIN Diagnosis Active 2019-01-04 Memoria 8-03 16:31:00 l CHEST 00:00: [place] PAIN 00 Active 10/14/2018 [facility] OTHER Diagnosis Active 2017-03-16 Mem oria SYMPTOMS 1-02 09:58:00 l AND SIGNS OTHER 00:00: Travis n INVOLVING SYMPTOMS 00 THE AND SIGNS MUSCULOSKE INVOLVING LET THE MUSCULOSKE LET Active 03/15/2017 [facility] Allergic Allergic Problem [facility] due to due to [facility] pollen pollen l [facility] Chest Chest Problem Active [facility] tightness tightness [facility] - [facility] Sickle Sickle Problem Active [facility] cell trait cell trait Suyapa kes - [facility] Asthma, Asthma, Problem Active [facility] unspecifie unspecifie Suyapa kes - d asthma d asthma Memori a severity, severity, l unspecifie unspecifie Ou tpati d whether d whether ent complicate complicate Cl inics d, d, unspecifie unspecifie d whether d whether persistent persistent Subcutaneo Subcutaneo Problem Active [facility] us mass us mass [facility] Anxiety Anxiety Problem Active [facility] [place] Problem [facility] syndrome syndrome [facility] History of History of Problem Active [facility] Newton's Newton's [facility] - palsy palsy [facility] Acute pain Acute pain Problem Active [facility] of left of left [facility] - shoulder shoulder [facility] a [facility] Cardiomega Cardiomega Problem Active [facility] ly ly [facility] Screening Screening Diagnosis Active [facility] for STDs for STDs [facility] - (sexually (sexually Surinder arnie transmitte transmitte l d d Outpati diseases) diseases) ent Clinics Well adult Well adult Diagnosis Active [facility] exam exam [facility] Shortness Shortness Problem Active [facility] of breath of breath [facility] - [facility] Allergic Allergic Problem Active [facility] rhinitis, rhinitis, Luke s - unspecifie unspecifie Me moria d d l seasonalit seasonalit Ou tpati y, y, ent unspecifie unspecifie Cl inics d trigger d trigger Rash and Rash and Problem Active [facility] nonspecifi nonspecifi Suyapa kes - c skin c skin Memoria eruption eruption l [facility] Need for Need for Problem Active [facility] meningitis meningitis Suyapa kes - vaccinatio vaccinatio Me moria n n l [facility] 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:02:47 l (disorder) Travis n Gilbert's syndrome (disorder) Resolved Problem 10/16/2018 [facility] Mastoiditi Problem Resolve 2018-10-16 Memoria s d 22:02:47 l (disorder) Travis n Mastoiditi s (disorder) Resolved Problem 10/16/2018 [facility] 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 n (disorder) valve disorder (disorder) Resolved Problem 10/16/2018 [facility] Seasonal Problem Resolve 2018-10-16 Me moria allergic d 22:02:47 l rhinitis Seasonal Herm santiago (disorder) allergic rhinitis (disorder) Resolved Problem 10/16/2018 [facility] Other Problem 2019-0 2018-10-16 2018-10-16 M emoria chest pain - 22:02:47 22:02:47 l Other 17:00: [place] chest pain 00 10/14/2018 10/16/2018 [facility] Chest Problem 2018-2018-10-16 2018-10-16 M emoria pain, 10-14 22:02:47 22:02:47 l unspecifie Chest 17:00: Diana nn d pain, 00 unspecifie d 10/14/2018 10/16/2018 [facility] Allergies, Adverse Reactions, Alerts Allergy Allergy Status Severity Reaction(s) Onset Inactive Treating Comm ents Source Name Type Date Date Clinician No Known No Known Active Memori a Medicati Medicati l on on [place] Allergie Allergie s s Social History Smoking Status Start Date Stop Date Source Social History [facility] Medications Ordered Filled Start Stop Current Ordering Indication Dosage Frequency Signature Comments Components Source Medication Medication Date Date Medication? Clinician (SIG) Name Name HydrOXYzine HydrOXYzine Yes Veronica [address] [facility] HCl HCl 6-12 Millender as needed [facility] - 00:00: for Memoria 00 anxiety l Outpati ent Clinics Meloxicam Meloxicam 2020- No Veronica [address] [facility] [facility] 6-12 07-12 Millender as needed Luke s - 00:00: 00:00 for pain; Memoria 00 :00 take with l food or Outpati milk ent Clinics Ketoconazol Ketoconazol 2020- No Veronica [address] [facility] e e 4-22 07-21 Millender applicatio Ankita es - 00:00: 00:00 n to Memoria 00 :00 affected l areas Outpati ent Clinics ibuprofen Yes 600 mg = 1 Me moria 600 mg oral 10-14 tab, PO, l tablet 22:22: Q6H, PRN Silverio 00 Pain or Fever, Take with food, X 5 day, # 20 tab, 0 Refill(s) Famotidine Yes 20 mg = 1 Me moria 20 MG Oral 03 tab, PO, l Tablet 22:21: BID, # 28 Travis n 00 tab, 0 Refill(s) Maalox No Notes: Memoria Advanced 10-14 (aluminum l Regular 20:57: hydroxide- Herm santiago Strength 00 magnesium SUSP hyd-simeth icone 200-200-20 mg/5ml 30 ml ud REED) Lidocaine No Notes: Memori a Viscous 2% 10-14 (Same as: l mucous 20:57: Xylocaine) Diana nn membrane 00 solution Saline No Notes: Memoria Flush 0.9% 10-14 (Same as: l 20:57: BD [place] 00 Posiflush) Sodium No 1,000 mL, Memori a Chloride 10-14 1000 l 0.9% 20:57: ml/hr, [place] (Bolus) IV 00 Infuse Over: 1 hr, Route: IV, 1,000, Drug form: INJ, ONCE, Priority: STAT, Dosing Weight 90.909 kg, Start date: 10/14/18 15:57:00 CDT, Stop date: 10/14/18 15:57:00 CDT, 0 Motrin No Notes: Memoria 10-14 (Same as: l 20:56: Motrin) "Do Not Crush" Take with food. aspirin 81 No Notes: Do Me moria mg tablet, 03-16 not crush l enteric 15:00: or chew. Travis n coated (Same As: Ecotrin) Prednisone No Notes: Memor ia 03-16 Take with l 15:00: food. atorvastati No Notes: Surinder arnie n 03 (Same As: l 03:00: Lipitor) Ibuprofen Yes 800 mg, Memor ia 03-15 BID, PRN l 21:19: Pain Score 1-5, 0 Refill(s) valACYclovi Yes 1,000 mg = Memoria r 500 mg 03-15 2 tab, PO, l oral tablet 21:14: ABXQ8H, X H ermann 7 day, # 42 tab, 0 Refill(s) predniSONE Yes See Memoria 20 mg oral 03-15 Special l tablet 21:14: Instructio Diana nn 00 ns, PO, Daily, 12 day regimen: Days 1-4 - 40 mg (2 tabs) daily Days 5-8 - 20 mg (1 tab) daily Days 9-12 - 10 mg (1/2 tab) daily, X 12 day, # 12 tab, 0 Refill(s) valacyclovi No Notes: Surinder arnie r - (Same As: l 21:00: Valtrex) [place] 00 tramadol Yes 50 mg = 1 Surinder arnie hydrochlori -02 tab, PO, l de 50 MG 18:05: Q4H, PRN Diana nn Oral Tablet 00 Pain, X 10 day, # 60 tab, 0 Refill(s) Sodium No 1,000 mL, Memori a Chloride 03-15 Rate: 125 l 0.9% IV 18:05: ml/hr, Silverio 1,000 mL 00 Infuse over: 8 hr, Route: IV, Dosing Weight 85.455 kg, Total Volume: 1,000, Start date: 03/15/17 12:05:00 HEALTH AND FITNESS PROFESSOR, Duration: 30 day, Stop date: 04/14/17 12:04:00 HEALTH AND FITNESS PROFESSOR, 2.08, m2 Polymyxin B Yes 1 drp, Surinder arnie [id number] 03-15 BOTH EYES, l UNT/ML / 16:39: TID, 0 Silverio Trimethopri 00 Refill(s) m 1 MG/ML Ophthalmic Solution Fluticasone Yes 1 spray, Me moria propionate 03-15 NASAL, l 0.05 16:38: Daily, PRN [place] MG/ACTUAT 00 Allergies, Metered 0 Dose Nasal Refill(s) [place] [Flonase] ibuprofen No 800 mg = 1 Me moria 800 mg oral 02 tab, PO, l tablet 16:37: TID, PRN Silverio 00 Pain Score 1-5, 0 Refill(s) montelukast Yes 10 mg = 1 M emoria 10 MG Oral 03-15 tab, PO, l Tablet 16:37: Daily, 0 Silverio [Singulair] 00 Refill(s) lisdexamfet Yes 20 mg = 1 M emoria amine 03-15 cap, PO, l dimesylate 16:36: QAM, 0 Diana nn 20 MG Oral 00 Refill(s) Capsule [Vyvanse] Saline No Notes: Memoria Flush 0.9% 03-15 (Same as: l 15:00: BD [place] Posiflush) Enoxaparin No Notes: Memor ia 03-15 (Same as: l 15:00: Lovenox) [place] Famotidine No Notes: Memor ia 03-15 (Same as: l 15:00: Pepcid) Saline No Notes: Memoria Flush 0.9% 03-15 (Same as: l 14:25: BD [place] 00 Posiflush) Sodium No 1,000 mL, Memori a Chloride 03-15 Rate: 75 l 0.9% IV 14:25: ml/hr, [place] 1,000 mL 00 Infuse over: 13.3 hr, Route: IV, Dosing Weight 85.455 kg, Total Volume: 1,000, Start date: 03/15/17 8:25:00 HEALTH AND FITNESS PROFESSOR, Duration: 30 day, Stop date: 04/14/17 8:24:00 HEALTH AND FITNESS PROFESSOR, 2.08, m2 Acetaminoph No Notes: Do M emoria en 03-15 not exceed l 14:25: 4 gm/day. (Same as: Tylenol) Aspirin No 325 mg, Memoria 03-15 Route: PO, l 10:54: Drug form: ECTAB, ONCE, Dosing Weight 85.455, kg, Priority: STAT, Start date: 03/15/17 4:54:00 HEALTH AND FITNESS PROFESSOR, Stop date: 03/15/17 4:54:00 HEALTH AND FITNESS PROFESSOR BD Normal No Notes: Memori a Saline 03-15 (Same as: l Flush 10:26: BD [place] 00 Posiflush) Saline No Notes: Memoria Flush 0.9% 03-15 (Same as: l 08:05: BD [place] 00 Posiflush) Sodium No 1,000 mL, Memori a Chloride 03-15 Infuse l 0.9% 08:05: Over: 1 [place] (Bolus) IV 00 hr, Route: IV, ONCE, Priority: STAT, Dosing Weight 85.455 kg, Start date: 03/15/17 2:05:00 HEALTH AND FITNESS PROFESSOR, Stop date: 03/15/17 2:05:00 HEALTH AND FITNESS PROFESSOR ProAir HFA ProAir HFA Yes Veronica [address] [facility] Millender needed [facility] Flonase Flonase Yes Veronica [address] [facility] Millender per [facility] - nostril Memoria l Outpati ent Clinics Singulair Singulair Yes Veronica [address] [facility] Millender [facility] 2020- No Veronica 1 tablet [facility] Allergy Allergy 03-30 Millender Ankita - 00:00 Memoria :00 l [facility] Vital Signs Vital Name Observation Time Observation Value Comments Source Heart Rate 2018-10-14 22:32:00 [facility] [place] Respitory Rate 2018-10-14 22:32:00 Memori al [place] Systolic (mm Hg) 2018-10-14 22:32:00 Surinder rial [place] Diastolic (mm Hg) 2018-10-14 22:32:00 Mem orial [place] Temperature Oral (F) 2018-10-14 22:32:00 98.1 F [facility] [place] BMI Calculated 2018-10-14 20:50:00 Memori al [place] Weight 2018-10-14 20:50:00 [facility] [place] Temperature Oral (F) 2018-10-14 20:50:00 98 F [facility] [place] Height 2018-10-14 20:50:00 177.8 cm [facility] [place] Respitory Rate 2018-10-14 20:50:00 Memori al [place] Systolic (mm Hg) 2018-10-14 20:50:00 Surinder rial [place] Diastolic (mm Hg) 2018-10-14 20:50:00 Mem orial [place] Heart Rate 2018-10-14 20:50:00 [facility] [place] Temperature Oral (F) 2017-03-15 21:30:00 98.1 F [facility] [place] Respitory Rate 2017-03-15 21:30:00 Memori al [place] Systolic (mm Hg) 2017-03-15 21:30:00 Surinder rial [place] Diastolic (mm Hg) 2017-03-15 21:30:00 Mem orial [place] Respitory Rate 2017-03-15 20:20:00 Memori al [place] Systolic (mm Hg) 2017-03-15 20:20:00 Surinder rial [place] Diastolic (mm Hg) 2017-03-15 20:20:00 Mem orial [place] Systolic (mm Hg) 2017-03-15 19:20:00 Surinder rial [place] Diastolic (mm Hg) 2017-03-15 19:20:00 Mem orial [place] Respitory Rate 2017-03-15 19:20:00 Memori al [place] Heart Rate 2017-03-15 14:21:00 [facility] [place] Temperature Oral (F) 2017-03-15 14:21:00 97.5 F [facility] [place] Temperature Oral (F) 2017-03-15 13:01:00 98.4 F [facility] [place] Heart Rate 2017-03-15 13:01:00 [facility] [place] Heart Rate 2017-03-15 12:07:00 [facility] [place] BMI Calculated 2017-03-15 07:39:00 Memori al [place] Weight 2017-03-15 07:39:00 [facility] [place] Height 2017-03-15 07:39:00 180.34 cm [facility] [place] Procedures Procedure Date / Time Performed Performing Clinician Sourkaylee Christina [facility] operations<sup>1</sup> Encounters Start End Encounter Admission Attending Care Care Encounter Source Date/Time Date/Time Type Type Clinicians Facility Department ID 2019-08-27 2019-08-27 Outpatient [facility] Avilest 31 [id number] [facility] 09:30:00 09:30:00 [facility] Family Medicine l Medicine Outpati ent Clinics 2018-10-14 2018-10-14 Outpatient Fort[place], [facility] [id number] 15:43:18 17:35:00 Kye 01 Temo 2018-10-14 2018-10-14 [id number] 15:43:00 15:43:00 l Silverio Perez l 2017-03-15 2017-03-15 Outpatient Mayo, [facility] [id number] 01:36:00 18:27:00 [place] 00 Results Test Description Test Time Test Comments Results Result Comments Source CARDIAC ENZYMES 2018-10-14 <0.02 [facility] [place] 21:01:00 CHEM PANEL 2018-10-14 21:01:00 Test Item Value Reference Range Interpretation Comme nts B/C Ratio (test code = B/C Ratio) 9 1 6-25 [facility] [id number] 21:01:0012.0[facility]annCHEM PANEL 2018-10-14 21:01:00 Test Item Value Reference Range Interpretation Comments A/G Ratio (test code = A/G Ratio) 1.2 1 0.7-1.6 [facility] [id number] 21:01:003.6[facility]annCHEM PANEL 2018-10-14 21:01:29817Wqwibmxo HermannCHEM IZQLV9709-57-90 21:01:0088[facility]annCHE[facility] BDLAZ7408-49-85 21:01:0017[facility]annCHE[facility] RRXKC8874-51-71 21:01:001.1[facility]CHE[facility] JHGQL8859-17-15 21:01:008.0[facility]CHE[facility] AMWEP4764-37-67 21:01:0021[facility]annCHE[facility] HFCBR8391-29-56 21:01:004.4 [facility] NEZJL5696-86-22 21:01:009.5[facility]annCHEM PANEL 2018-10-14 21:01:0027[facility]annCHEM UZUDP1681-94-67 21:01:85963Jlogruvb HermannCHEM VPWTK8987-19-92 21:01:21372Ncltzjsf HermannCHEM WHYQP6960-12-58 21:01:004.0[facility]annCHEM SFAYW6449-05-42 21:01:009[facility]annCHEM UHAMO9034-69-57 21:01:001.00[facility]annCHEM SDQDH3017-50-24 21:01:0085 Memorial SqvuntfVSDVMZHFKE1844-65-29 21:01:0042.6[facility]annHEMATOLOGY 2018-10-14 21:01:0086.9[facility] CunxdykLMYQAZZAHD3161-72-00 21:01:00 Test Item Value Reference Range Interpretation Comments MCH (test code = MCH) 28.8 pg 27.0-31.0 [facility] FuynfpaSRLGUCHZPI7635-74-54 21:01:77865Rqpjqxjy HermannHEMATOLOGY 2018-10-14 21:01:009.4[facility] HmaezopZZCQUTSTLR5757-38-63 21:01:0012.4[facility] FiucokuCLCOCBJQZI7249-53-23 21:01:0033.1[facility] FvhmursJHKLJWMLPJ8696-81-52 21:01:006.6[facility] SmrfrdhQICEYKCPEU5461-61-00 21:01:004.90[facility] [place] REIZZFZGFT6849-46-34 21:01:0014.1[facility] LsmjmouLEZODVMCWL9206-03-22 21:01:00 1.8[facility] ZreiqenFAFTVFYGTN4520-43-62 21:01:000.7[facility] HermannHEMATOLOGY 2018-10-14 21:01:000.7[facility] BckcobfCXBELCVHJF6543-25-59 21:01:000.6[facility] GvkbhbjTJZMJJKOPM9843-64-13 21:01:004.0[facility] BnubtafCUELXFSQZE1286-38-04 21:01:0060.5[facility] MywwqhuNYHHETJOOV8673-74-50 21:01:0027.6[facility] [place] OZLWSVCSJJ2548-62-44 21:01:0010.6[facility] HermannCARDIAC NMDOGWX1010-96-32 14:35:000.03[facility] EgvvrcsOYGHAI1593-88-70 14:35:0014[facility] HermannLIPIDS 2017-03-15 14:35:0078[facility] BkghebtLLDFGW0038-42-01 14:35:0072[facility] [place] QBUACA2858-49-81 14:35:0038[facility] CmbrjieFOENEX3437-67-21 14:35:25634Sppnpgje SbwyikyPCFUVC2079-19-93 14:35:003.42[facility] HermannSPECIAL KOYKAPJOT2556-67-78 14:35:0042[facility] HermannSPECIAL BUACVGPNQ2106-93-31 14:35:004.6[facility] HermannDRUG GCXVIQ9514-54-06 09:19:00Negative *NA*(03/15/17 3:19 AM)[facility]annDRUG VDTSMC3834-27-01 09:19:00Negative *NA*(03/15/17 3:19 AM)[facility]annDR[facility] [id number] 09:19:00Negative *NA*(03/15/17 3:19 AM)[facility]annDR[facility] ZNEVOI7291-48-31 09:19:00See Note (03/15/17 3:19 AM)[facility] DRUG [id number] 09:19:00Negative *NA*(03/15/17 3:19 AM)[facility] EKIZGJ8428-28-31 09:19:00Negative *NA*(03/15/17 3:19 AM)[facility]annDR[facility] BYKAIL8177-52-82 09:19:00Negative *NA*(03/15/17 3:19 AM)[facility]annDRUG OUKBQP4642-40-00 09:19:00Negative *NA*(03/15/17 3:19 AM)[facility] AND OAMIK0329-47-00 09:19:00Negative (03/15/17 3:19 AM)[facility] AND STOOL 2017-03-15 09:19:000.2[facility] AND KCOQK2112-08-62 09:19:00Negative *NA*(03/15/17 3:19 AM)[facility] AND VHBII4701-01-68 09:19:00 Test Item Value Reference Range Interpretation Comments UA pH (test code = UA pH) 6.5 1 5.0-8.0 [facility] [id number] 09:19:00 Test Item Value Reference Range Interpretation Comments UA Spec Grav (test code = UA Spec 1.020 1 Grav) [facility] [id number] 09:19:00Yellow *NA*(03/15/17 3:19 AM) [facility] GPNJH0944-07-77 09:19:00Negative (03/15/17 3:19 AM) [facility] PIVXT6000-23-67 09:19:00Clear (03/15/17 3:19 AM)[facility] LSIOF4933-66-37 09:19:00Negative (03/15/17 3:19 AM)[facility] ANWXJ9884-26-47 09:19:00None Seen (03/15/17 3:19 AM)[facility]annCARDIAC HMQNJEK2525-62-91 08:25:000.3[facility] HermannCARDIAC ENZYMES 2017-03-15 08:25:000.04[facility] HermannCARDIAC JXYEHOO1039-80-57 08:25:23177 [facility]annCARDIAC YZZLBOF7658-02-94 08:25:003.0[facility] DUJLPGVQCYSD7593-55-19 08:25:23556Zegmhmwg PucswwcKUITKGAZRLOM4213-64-76 08:25:003.7[facility]orial BgdxbdbCCXFJWDCWJGB2517-60-43 08:25:70181Zqeoljnr [place] HKRCGFBMZWJN7311-23-97 08:25:0027[facility] GzdskkrMYATRJAECAEI3301-75-27 08:25:00 8.9[facility]orial OgzendaYQPTGAMGQBCU5243-62-73 08:25:0013.7[facility] COVKMWZQXFXA9669-56-16 08:25:05542Swpcnayo IictfqtLYWWIBEKDRSZ0384-89-45 08:25:0096[facility] KnjkyenGMTMDBVOWYZP5544-20-03 08:25:0015[facility] FMTWLJNBWOQC8934-23-97 08:25:001.07[facility] EezsdlaXMNQBEJPXF7822-77-05 08:25:00 0.1[facility] EmbohhuFAPOSMQXYM9119-72-71 08:25:001.1[facility] HermannHEMATOLOGY 2017-03-15 08:25:000.4[facility] NuegdntQVUXFUJJYK0490-27-92 08:25:000.4[facility] YrilupuFHXNTTCDLU6017-79-36 08:25:002.3[facility] GqilzzbNKIBTCNNGU0411-06-58 08:25:008.9[facility] RxhsdpsSOLOXVXGSE7882-20-05 08:25:0072.0[facility] [place] GPALFHLLWQ3480-83-70 08:25:008.8[facility] QbuakueGRGSJIFIWK6796-85-52 08:25:00 18.4[facility] VwnfvlnNRBSGZXZVK3991-41-46 08:25:008.8[facility] HermannHEMATOLOGY 2017-03-15 08:25:07196Wllypokp IpxtecjYYRCBQUYXK2661-29-25 08:25:0085.4[facility] FxkdpvxVRBKXBQWVW4882-20-85 08:25:0039.7[facility] OrdafxhGAJFUGDXWX0346-62-97 08:25:0013.4[facility] WqveqtaAUXPZBLMZC9937-20-07 08:25:00 Test Item Value Reference Range Interpretation Comments MCH (test code = MCH) 28.9 pg 27.0-31.0 [facility] FfjyjknBNMJHBBJVR7371-18-91 08:25:0012.4[facility] HermannHEMATOLOGY 2017-03-15 08:25:0033.8[facility] LnltspvXDBFCYIRUG5004-20-74 08:25:0012.4[facility] UumxsmpVWTSPTXEBO1792-05-33 08:25:004.65[facility] NlooqxuOAMZGCUWZX3121-94-41 08:25:001.27[facility] QgdnmkfSSGHGWIAUA7186-20-04 08:25:00 Test Item Value Reference Range Interpretation Comments PT (test code = PT) 16.0 s 12.0-14.7 [facility] GsjarfvRMOPGIJLAL0764-54-32 08:25:00 Test Item Value Reference Range Interpretation Comments PTT (test code = PTT) 32.8 s 22.9-35.8 [facility]
--- NOTE | 2020-03-04 16:18 | RAD REPORT ---
EXAM DESCRIPTION: RAD - Hand Right 3 View - 03/04/2020 3:43 pm CLINICAL HISTORY: PAIN COMPARISON: No comparisons FINDINGS: No bone avulsion or acute fracture change identified. Slight subluxation of the first prox imal phalanx at the MCP joint could indicate ligamentous injury. Elsewhere in the right hand no bone or joint abnormality seen. No foreign body or significant soft ti ssue abnormality. IMPRESSION: No fracture. Ligamentous injury at the first MCP joint is still possible.
--- NOTE | 2020-03-04 16:19 | ER ---
Nurse's Notes [facility] Name: Adi Soliman Age: 19 yrs Sex: Male : 2000 Arrival Date: 03/04/2020 Time: 14:17 Bed Waiting Private MD: Diagnosis: Other sprain of right thumb Presentation: 03/04 14:39 Chief complaint: Patient states: was playing basketball and his right thumb got bent iw back, happened yesterday. Coronavirus screen: At this time, the client does not indicate any symptoms associated with coronavirus-19. Ebola Screen: Patient negative for fever greater than or equal to 101.5 degrees Fahrenheit, and additional compatible Ebola Virus Disease symptoms Patient denies exposure to infectious person. Patient denies travel to an Ebola-affected area in the 21 days before illness onset. No symptoms or risks identified at this time. Initial Sepsis Screen: Does the patient meet any 2 criteria? No. Patient's initial sepsis screen is negative. Does the patient have a suspected source of infection? No. Patient's initial sepsis screen is negative. Risk Assessment: Do you want to hurt yourself or someone else? Patient reports no desire to harm self or others. Onset of symptoms was March 03, 2020. 14:39 Method Of Arrival: Ambulatory iw 14:39 Acuity: SABI 4 iw Triage Assessment: 15:00 General: Appears. Injury Description: Bruise. iw Historical: - Allergies: 14:40 No Known Allergies; iw - Home Meds: 14:40 None [Active]; iw - PSHx: 14:40 None; iw - Immunization history:: Adult Immunizations unknown. - Social history:: Smoking status: Patient denies any tobacco usage or history of. Screenin:41 Abuse screen: Denies threats or abuse. Denies injuries from another. Nutritional iw screening: No deficits noted. Tuberculosis screening: No symptoms or risk factors identified. Fall Risk None identified. Assessment: 14:41 General: Appears in no apparent distress. Behavior is calm, cooperative. Pain: iw Complains of pain in right hand. Neuro: Level of Consciousness is awake, alert, obeys commands, Oriented to person, place, time, situation, Moves all extremities. Full function. Cardiovascular: Patient's skin is warm and dry. Respiratory: Reports shortness of breath at rest. Derm: Skin is intact, is healthy with good turgor. Musculoskeletal: Range of motion: limited in MCP of right thumb and CMC of right thumb. Vital Signs: 14:40 BP 122 / 77; Pulse 76; Resp 16; Temp 97.8; Pulse Ox 99% ; Weight 95.71 kg; Height 5 ft. iw 10 in. (177.80 cm); 14:40 Body Mass Index 30.28 (95.71 kg, 177.80 cm) iw ED Course: 14:17 Patient arrived in ED. rg4 14:39 Triage completed. iw 14:40 Arm band placed on. iw 14:41 Gayatri Mcrae FNP-C is PHCP. kb 14:41 Michael Durand MD is Attending Physician. kb 14:41 Patient has correct armband on for positive identification. iw 15:43 Hand Right 3 View XRAY In Process Unspecified. EDMS 15:46 Reyna Soliman, RN is Primary Nurse. iw 16:33 No provider procedures requiring assistance completed. Patient did not have IV access iw during this emergency room visit. Administered Medications: No medications were administered Outcome: 16:19 Discharge ordered by MD. kb 16:33 Discharged to home ambulatory. iw 16:33 Condition: good 16:33 Discharge instructions given to patient, Instructed on discharge instructions, follow up and referral plans. Demonstrated understanding of instructions, follow-up care. 16:34 Patient left the ED. iw Signatures: Dispatcher [employer] EDMS Gayatri Mcrae FNP-C FNP-Ckb Williams, Irene, RN RN iw Shannon Salazar rg4
--- NOTE | 2020-03-04 16:19 | EDPHYS ---
Physician Documentation [facility] Name: Adi Soliman Age: 19 yrs Sex: Male : 2000 Arrival Date: 03/04/2020 Time: 14:17 Bed Waiting Private MD: ED Physician Michael Durand HPI: 03/04 14:48 This 19 yrs old Black Male presents to ER via Ambulatory with complaints of Wrist kb Injury. 14:48 The patient has not experienced similar symptoms in the past. The patient has not kb recently seen a physician. 14:48 The patient or guardian reports decreased range of motion, injury, pain, swelling, kb tenderness. The complaints affect the right thumb and lateral aspect of right hand. Context: The problem was sustained at a sports field or court, resulted from playing sports, basketball. Onset: The symptoms/episode began/occurred yesterday. Modifying factors: The symptoms are alleviated by nothing, the symptoms are aggravated by movement. Associated signs and symptoms: The patient has no apparent associated signs or symptoms. Severity of symptoms: At their worst the symptoms were moderate, in the emergency department the symptoms are unchanged. Historical: - Allergies: 14:40 No Known Allergies; iw - Home Meds: 14:40 None [Active]; iw - PSHx: 14:40 None; iw - Immunization history:: Adult Immunizations unknown. - Social history:: Smoking status: Patient denies any tobacco usage or history of. ROS: 14:47 Constitutional: Negative for fever, chills, and weight loss, Cardiovascular: Negative kb for chest pain, palpitations, and edema, Respiratory: Negative for shortness of breath, cough, wheezing, and pleuritic chest pain, Abdomen/GI: Negative for abdominal pain, nausea, vomiting, diarrhea, and constipation, Skin: Negative for injury, rash, and discoloration, Neuro: Negative for headache, weakness, numbness, tingling, and seizure. 14:47 MS/extremity: Positive for injury or acute deformity, decreased range of motion, pain, swelling, tenderness, of the lateral aspect of right hand. Exam: 14:47 Constitutional: This is a well developed, well nourished patient who is awake, alert, kb and in no acute distress. Head/Face: Normocephalic, atraumatic. Chest/axilla: Normal chest wall appearance and motion. Nontender with no deformity. No lesions are appreciated. Cardiovascular: Regular rate and rhythm with a normal S1 and S2. No gallops, murmurs, or rubs. Normal PMI, no JVD. No pulse deficits. Respiratory: Lungs have equal breath sounds bilaterally, clear to auscultation and percussion. No rales, rhonchi or wheezes noted. No increased work of breathing, no retractions or nasal flaring. Abdomen/GI: Soft, non-tender, with normal bowel sounds. No distension or tympany. No guarding or rebound. No evidence of tenderness throughout. Skin: Warm, dry with normal turgor. Normal color with no rashes, no lesions, and no evidence of cellulitis. Neuro: Awake and alert, GCS 15, oriented to person, place, time, and situation. Cranial nerves II-XII grossly intact. Motor strength 5/5 in all extremities. Sensory grossly intact. Cerebellar exam normal. Normal gait. 14:47 Musculoskeletal/extremity: Extremities: grossly normal except: noted in the right thumb and lateral aspect of right hand: decreased ROM, pain, swelling, tenderness, ROM: limited active range of motion, in the right thumb, Circulation is intact in all extremities. Sensation intact. Vital Signs: 14:40 BP 122 / 77; Pulse 76; Resp 16; Temp 97.8; Pulse Ox 99% ; Weight 95.71 kg; Height 5 ft. iw 10 in. (177.80 cm); 14:40 Body Mass Index 30.28 (95.71 kg, 177.80 cm) iw MDM: 14:41 Patient medically screened. kb 14:47 Data reviewed: vital signs, nurses notes. Data interpreted: Pulse oximetry: on room air kb is 99 %. Interpretation: normal. 15:59 Counseling: I had a detailed discussion with the patient and/or guardian regarding: the kb historical points, exam findings, and any diagnostic results supporting the discharge/admit diagnosis, radiology results, the need for outpatient follow up, a orthopedic surgeon, to return to the emergency department if symptoms worsen or persist or if there are any questions or concerns that arise at home. 03/04 14:41 Order name: Hand Right 3 View XRAY; Complete Time: 16:19 kb 03/04 16:19 Order name: Thumb Spica Splint; Complete Time: 16:33 kb Administered Medications: No medications were administered Disposition: 03/05 06:30 Co-signature as Attending Physician, Michael Durand MD I agree with the assessment and kdr plan of care. Disposition: 03/04/20 16:19 Discharged to Home. Impression: Other sprain of right thumb. - Condition is Stable. - Discharge Instructions: Thumb Sprain. - Medication Reconciliation Form, Thank You Letter, Antibiotic Education, Prescription Opioid Use, Work release form form. - Follow up: Private Physician; When: 2 - 3 days; Reason: Recheck today's complaints, Continuance of care, Re-evaluation by your physician. Follow up: Emergency Department; When: As needed; Reason: Worsening of condition. Signatures: Dispatcher [employer] EDMS Gayatri Mcrae, FIRE SUPERVISOR-C FIRE SUPERVISOR-Michael Aguillon MD MD kdr Reyna Soliman RN RN iw Corrections: (The following items were deleted from the chart) 03/04 14:49 14:48 The patient or guardian reports decreased range of motion, injury, pain, kb swelling, tenderness, kb 16:33 16:19 03/04/2020 16:19 Discharged to Home. Impression: Other sprain of right thumb. iw Condition is Stable. Discharge Instructions: Thumb Sprain. Forms are Medication Reconciliation Form, Thank You Letter, Antibiotic Education, Prescription Opioid Use. Follow up: Private Physician; When: 2 - 3 days; Reason: Recheck today's complaints, Continuance of care, Re-evaluation by your physician. Follow up: Emergency Department; When: As needed; Reason: Worsening of condition. kb
[2020-03-05 10:09] VITALS: BP 122/77; TEMP 97.8; O2SAT 99
== END 2020-03-04 16:34 | disposition home or self-care (01) ==
LOC: ER 14:15
DX: S63.681A Other sprain of right thumb, initial encounter (principal); Y93.67 Activity, basketball; Y92.310 Basketball court as the place of occurrence of the external cause
CPT/HCPCS: 99283